=== PATIENT | female | born 1985 | race Caucasian/White ===

== ENCOUNTER 2023-02-04 13:17 | Outpatient (CLI) | payer BC, SELFPAY ==
--- NOTE | 2023-02-04 13:30 | XR_ITS ---
WS: [id number] Nasal bones, 3 views, 02/04/2023 Clinical Data: CONTUSION OF NOSE/LACERATION W/O FOREIGN BODY Comparison: None. Findings: The nasal bone and nasal spine were intact. There are no fractures or dislocations. The mandible is u nremarkable. The orbits appeared intact. Impression: Negative nasal bones.
== END 2023-02-04 13:18 | disposition home or self-care (01) ==
PROVIDERS: Visit Provider Nurse Practitioner
DX: S01.21XA Laceration without foreign body of nose, initial encounter (principal); X58.XXXA Exposure to other specified factors, initial encounter
CPT/HCPCS: 70160

== ENCOUNTER → 2023-10-13 10:21 | Outpatient (BNVA) | payer BC, SELFPAY | PROVIDERS: PCP Nurse Practitioner; Visit Provider Internal Medicine Rheumatology | DX: Z79.899 Other long term (current) drug therapy (principal); M19.90 Unspecified osteoarthritis, unspecified site; R76.8 Other specified abnormal immunological findings in serum; Z11.1 Encounter for screening for respiratory tuberculosis; Z11.59 Encounter for screening for other viral diseases; M45.6 Ankylosing spondylitis lumbar region; M79.641 Pain in right hand; M79.671 Pain in right foot | CPT/HCPCS: 36415; 73130; 73630; 80076; 82306; 82565; 85025; 85651; 86140; 86160; 86162; 86200; 86235; 86255; 86376; 86480; 86704; 86803; 86812; 87340 ==

== ENCOUNTER → 2024-07-11 10:12 | Outpatient (BNVA) | payer BC, SELFPAY | PROVIDERS: PCP Nurse Practitioner; Visit Provider Internal Medicine Rheumatology | DX: Z79.899 Other long term (current) drug therapy (principal); M06.00 Rheumatoid arthritis without rheumatoid factor, unspecified site; R76.8 Other specified abnormal immunological findings in serum; M19.90 Unspecified osteoarthritis, unspecified site; I73.00 Raynaud's syndrome without gangrene; Z71.85 Encounter for immunization safety counseling | CPT/HCPCS: 36415; 80076; 82565; 85025; 85651; 86140 ==

== ENCOUNTER 2025-01-31 11:57 | Outpatient (CLI) | payer BC, SELFPAY ==
[2025-01-31 13:18] LABS: Hematocrit 39.3 % (36-47); Hemoglobin 13.20 g/dL (11.27-16.99); Mean Corpuscular HGB Conc 33.6 g/dL (30-55); Mean Corpuscular Hemoglobin 29.6 pg (27-33); Mean Corpuscular Volume 88.1 fl (85-98); Nucleated Red Blood Cells % 0 %; Platelet Count 308 10^3/cmm (157-399); Red Blood Count 4.46 10^6/uL (3.85-5.65); White Blood Count 8.21 10^3/uL (3.29-11.43)
[2025-01-31 13:57] LABS: Alanine Aminotransferase 19 U/L (0-33); Albumin Level 4.5 g/dL (3.5-5.2); Alkaline Phosphatase 49 U/L (35-105); Aspartate Amino Transferase 16 U/L (0-32); Globulin 2.5 g/dL (1.3-4.6); Thyroid Stimulating Hormone 1.62 uIU/mL (0.27-4.20); Total Protein 7.0 g/dL (6.6-8.7)
[2025-01-31 14:21] LABS: Free T4 Free Thyroxine 1.11 ng/dL (0.82-1.77)
== END 2025-01-31 11:58 | disposition home or self-care (01) ==
PROVIDERS: PCP Nurse Practitioner; Visit Provider Internal Medicine Rheumatology
DX: Z79.899 Other long term (current) drug therapy (principal)
CPT/HCPCS: 36415; 80076; 82306; 82565; 84439; 84443; 85025; 85651; 86140